=== PATIENT | female | born 1935 | race African-American/Black ===

== ENCOUNTER 2017-03-17 16:11 | Emergency (ER) | payer OTHER ==
--- NOTE | 2017-03-17 17:14 | CPEKG ---
Heart Rate: 53 RR Interval: 1132 P-R Interval: 160 QRSD Interval: 80 QT Interval: 444 QTC Interval: 417 P Delta: 8 QRS Delta: -14 T Wave Delta: 35 EKG Severity - NORMAL ECG - EKG Impression: SINUS RHYTHM Electronically Signed By: Tony Aguirre 17-Mar-2017 22:32:10
[2017-03-17] MEDS ORDERED: NS 1,000 ML IV ONE (17:20)
--- NOTE | 2017-03-17 17:20 | EDPHY ---
H & P Stated Complaint: Fall, not known why, small head lac HPI/ROS: HPI CHIEF COMPLAINT: Syncope, head injury, head laceration HISTORY OF PRESENT ILLNESS: This patient very pleasant 81-year-old female denies any significant medical history, does take daily aspirin, she presents emergency room after she had a syncopal episode. She states she was at the [facility] she was in a hot tub she stated the hot tub for approximately 25 minutes. She got overheated she decided to get out of the hot tub. She Got lightheaded, had a syncopal episode. No preceding symptoms. No chest pain or shortness of breath. She states the last thing she remember was trying to get into a shower. Found herself on the ground. She did have head strike. LOC. And has a small occipital hematoma and laceration. Past Medical History: Vertigo Past Surgical History: Denies recent surgery Social History: Denies daily use of drugs alcohol tobacco products Family History: Noncontributory ROS REVIEW OF SYSTEMS: A comprehensive 10 point review of systems is otherwise negative aside from elements mentioned in the history of present illness. Exam Constitutional triage nursing summary reviewed, vital signs reviewed, awake/ alert. Eyes normal conjunctivae and sclera, EOMI, PERRLA. HENT head/neck: Posterior occiput shows a small hematoma, with a small puncture laceration, otherwise atraumatic, no neck pain. normal inspection, atraumatic, moist mucus membranes, no epistaxis, neck supple/ no meningismus, no raccoon eyes. Respiratory clear to auscultation bilaterally, normal breath sounds, no respiratory distress, no wheezing. Cardiovascular rate normal, regular rhythm, no murmur, no edema, distal pulses normal. Gastrointestinal soft, non-tender, no rebound, no guarding, normal bowel sounds, no distension, no pulsatile mass. Genitourinary no CVA tenderness. Musculoskeletal no midline vertebral tenderness, full range of motion, no calf swelling, no tenderness of extremities, no meningismus, good pulses, neurovascularly intact. Skin pink, warm, & dry, no rash, skin atraumatic. Neurologic awake, alert and oriented x 3, AAOx3, moves all 4 extremities equally, motor intact, sensory intact, CN II-XII intact, normal cerebellar, normal vision, normal speech. Psychiatric normal mood/affect. Heme/Lymph/Immune no lymphadenopathy. 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 Re-evaluation: EKG interpretation by me on record in [facility] system. Impression time of EKG 17 12, sinus rhythm rate of 53. Normal intervals. No acute ischemic changes appreciated. Unremarkable EKG. CT scan of the head without IV contrast The results of the study are negative for acute intracranial trauma.. The study was read by Dr. Hernandez. I viewed the images myself on the PACS system. 1859: Re-evaluation at this time this patient is resting comfortably no acute distress. She ambulated well throughout the emergency room night difficulty. She did receive IV fluids. Blood work, EKG, troponin, CT scan is unremarkable. Her wound has been clean. Tetanus shot updated. She feels comfortable going home. She has been given return precautions she understands return to the emergency room if she has another syncopal episode. Stay well-hydrated drink lots of fluids. Source: Patient - Personal History Current Tetanus/Diphtheria Vaccine: Unsure Current Tetanus Diphtheria and Acellular Pertussis (TDAP): Unsure - Medical/Surgical History Hx Asthma: No Hx Chronic Respiratory Disease: No Hx Diabetes: No Hx Cardiac Disease: No Hx Renal Disease: No Hx Cirrhosis: No Hx Alcoholism: No Hx HIV/AIDS: No Hx Splenectomy or Spleen Trauma: No Other PMH: Elevated cholestrol, Breast CA (lumpectomy x 2 rt side), HTN - Social History Smoking Status: Never smoked Constitutional: Initial Vital Signs Temperature (C) 36.5 C 03/17/17 16:20 Heart Rate 67 03/17/17 16:20 Respiratory Rate 18 03/17/17 16:20 Blood Pressure 131/63 H 03/17/17 16:20 O2 Sat (%) 96 03/17/17 16:20 O2 Delivery Mode Room Air Allergies/Adverse Reactions: No Known Allergies Allergy (Verified 03/17/17 16:19) Home Medications: Medication Instructions Recorded Aspirin [Aspirin 81mg (*)] 81 mg PO DAILY 05/05/14 Cholecalciferol Vit D3 [Vitamin D3 1,000 units PO DAILY 05/05/14 (*)] Magnesium Oxide [Magnesium Oxide 400 mg PO DAILY 05/05/14 400 mg (*)] Ondansetron Odt [Zofran Odt 4 mg 4 mg PO Q4 #10 tab 05/05/14 (*)] Meclizine HCl 03/17/17 Medical Decision Making - Diagnostics Imaging Results: Imaging Impressions Chest X-Ray 03/17/17 17:20 Impression: 1. No acute pulmonary disease. 2. Atherosclerotic thoracic aorta. 3. Consider chest two views when the patient's medical condition permits. - Data Points Laboratory Results: Laboratory Results 03/17/17 17:25 03/17/17 17:25 03/17/17 03/17/17 03/17/17 17:25 17:25 17:25 WBC RBC Hgb Hct MCV MCH MCHC RDW Plt Count MPV Neut % (Auto) Lymph % (Auto) Callahan % (Auto) Eos % (Auto) Baso % (Auto) Nucleat RBC Rel Count Absolute Neuts (auto) Absolute Lymphs (auto) Absolute Monos (auto) Absolute Eos (auto) Absolute Basos (auto) Absolute Nucleated RBC Immature Gran % Immature Gran # PT 12.7 SEC SEC (12.0-15.0) INR 0.96 (0.83-1.16) APTT 24.8 SEC SEC (23.0-38.0) Sodium 140 mEq/L mEq/L (134-144) Potassium 3.8 mEq/L mEq/L (3.5-5.2) Chloride 105 mEq/L mEq/L (97-110) Carbon Dioxide 23 mEq/l mEq/l (22-31) Anion Gap 12 mEq/L mEq/L (8-16) BUN 15 mg/dL mg/dL (7-23) Creatinine 0.6 mg/dL mg/dL (0.6-1.0) Estimated GFR > 60 Glucose 83 mg/dL mg/dL (70-100) Calcium 9.6 mg/dL mg/dL (8.5-10.4) Magnesium 2.2 mg/dL mg/dL (1.6-2.3) Total Bilirubin 0.5 mg/dL mg/dL (0.1-1.4) Conjugated Bilirubin 0.3 mg/dL mg/dL (0.0-0.5) Unconjugated Bilirubin 0.2 mg/dL mg/dL (0.0-1.1) AST 26 IU/L IU/L (14-46) ALT 26 IU/L IU/L (9-52) Alkaline Phosphatase 74 IU/L IU/L (38-126) Troponin I < 0.012 ng/mL ng/mL (0-0.034) NT-Pro-B Natriuret Pep 139 pg/mL pg/mL (0-450) Total Protein 6.7 g/dL g/dL (6.3-8.2) Albumin 4.1 g/dL g/dL (3.5-5.0) Lipase 64.0 IU/L IU/L (23-300) Urine Color Pending Urine Appearance Pending Urine pH Pending Ur Specific Hamilton Pending Urine Protein Pending Urine Ketones Pending Urine Blood Pending Urine Nitrate Pending Urine Bilirubin Pending Urine Urobilinogen Pending Ur Leukocyte Esterase Pending Urine Glucose Pending 03/17/17 17:25 WBC 6.33 10^3/uL 10^3/uL (3.80-9.50) RBC 4.55 10^6/uL 10^6/uL (4.18-5.33) Hgb 13.2 g/dL g/dL (12.6-16.3) Hct 39.4 % % (38.0-47.0) MCV 86.6 fL fL (81.5-99.8) MCH 29.0 pg pg (27.9-34.1) MCHC 33.5 g/dL g/dL (32.4-36.7) RDW 11.9 % % (11.5-15.2) Plt Count 172 10^3/uL 10^3/uL (150-400) MPV 10.8 fL fL (8.7-11.7) Neut % (Auto) 70.3 % % (39.3-74.2) Lymph % (Auto) 18.5 % % (15.0-45.0) Callahan % (Auto) 8.7 % % (4.5-13.0) Eos % (Auto) 1.6 % % (0.6-7.6) Baso % (Auto) 0.6 % % (0.3-1.7) Nucleat RBC Rel Count 0.0 % % (0.0-0.2) Absolute Neuts (auto) 4.45 10^3/uL 10^3/uL (1.70-6.50) Absolute Lymphs (auto) 1.17 10^3/uL 10^3/uL (1.00-3.00) Absolute Monos (auto) 0.55 10^3/uL 10^3/uL (0.30-0.80) Absolute Eos (auto) 0.10 10^3/uL 10^3/uL (0.03-0.40) Absolute Basos (auto) 0.04 10^3/uL 10^3/uL (0.02-0.10) Absolute Nucleated RBC 0.00 10^3/uL 10^3/uL (0-0.01) Immature Gran % 0.3 % % (0.0-1.1) Immature Gran # 0.02 10^3/uL 10^3/uL (0.00-0.10) PT INR APTT Sodium Potassium Chloride Carbon Dioxide Anion Gap BUN Creatinine Estimated GFR Glucose Calcium Magnesium Total Bilirubin Conjugated Bilirubin Unconjugated Bilirubin AST ALT Alkaline Phosphatase Troponin I NT-Pro-B Natriuret Pep Total Protein Albumin Lipase Urine Color Urine Appearance Urine pH Ur Specific Hamilton Urine Protein Urine Ketones Urine Blood Urine Nitrate Urine Bilirubin Urine Urobilinogen Ur Leukocyte Esterase Urine Glucose Medications Given: Discontinued Medications Diphtheria/Tetanus/Acell Pertussis (Boostrix) 0.5 ml IM .ONCE ONE Stop: 03/17/17 17:53 Last Admin: 03/17/17 18:08 Dose: 0.5 ml Sodium Chloride (Ns) 1,000 mls @ 0 mls/hr IV ONCE ONE; Wide Open PRN Reason: Protocol Stop: 03/17/17 17:21 Last Admin: 03/17/17 17:30 Dose: 1,000 mls Departure - Departure Disposition: Home, Routine, Self-Care Clinical Impression: Syncope Qualifiers: Syncope type: vasovagal syncope Qualified Code(s): R55 - Syncope and collapse Condition: Good Instructions: Syncope (ED) Additional Instructions: 1. Drink lots of fluids stay well-hydrated. 2. Return to the emergency room if there is any worsening symptoms questions or concerns. Referrals: Yomi Moore MD [Primary Care Provider] - As per Instructions
[2017-03-17 17:38] LABS: % IMMATURE GRANULYOCYTES 0.3 % (0.0-1.1); ABSOLUTE IMMATURE GRANULOCYTES 0.02 10^3/uL (0.00-0.10); ADD DIFF? NO; ADD MORPH? NO; ADD SCAN? NO; ATYPICAL LYMPHOCYTE FLAG 0 (0-99); FRAGMENT RBC FLAG 0 (0-99); HEMATOCRIT 39.4 % (38.0-47.0); HEMOGLOBIN 13.2 g/dL (12.6-16.3); LEFT SHIFT FLG 0 (0-99); LIPEMIA HEMOLYSIS FLAG 80 (0-99); MEAN CELL HEMOGLOBIN CONCENTR. 33.5 g/dL (32.4-36.7); MEAN CELL VOLUME 86.6 fL (81.5-99.8); MEAN PLATELET VOLUME 10.8 fL (8.7-11.7); PLATELET CLUMPS FLAG 0 (0-99); PLATELET COUNT 172 10^3/uL (150-400); RED BLOOD CELL COUNT 4.55 10^6/uL (4.18-5.33); RED CELL DISTRIBUTION WIDTH 11.9 % (11.5-15.2)
[2017-03-17 17:47] LABS: APTT 24.8 SEC (23.0-38.0); INR 0.96 (0.83-1.16); PROTIME(PATIENT) 12.7 SEC (12.0-15.0)
[2017-03-17 17:52] LABS: ALANINE AMINOTRANSFERASE 26 IU/L (9-52); ALBUMIN 4.1 g/dL (3.5-5.0); ALKALINE PHOSPHATASE 74 IU/L (38-126); ANION GAP 12 mEq/L (8-16); ASPARTATE AMINOTRANSFERASE 26 IU/L (14-46); BILIRUBIN,TOTAL 0.5 mg/dL (0.1-1.4); BILIRUBIN-CONJUGATED 0.3 mg/dL (0.0-0.5); BILIRUBIN-UNCONJUGATED 0.2 mg/dL (0.0-1.1); CALCIUM 9.6 mg/dL (8.5-10.4); CARBON DIOXIDE 23 mEq/l (22-31); CHLORIDE 105 mEq/L (97-110); CREATININE 0.6 mg/dL (0.6-1.0); GLOMERULAR FILTRATION RATE > 60; GLUCOSE 83 mg/dL (70-100); MAGNESIUM 2.2 mg/dL (1.6-2.3); POTASSIUM 3.8 mEq/L (3.5-5.2); SODIUM 140 mEq/L (134-144); TOTAL PROTEIN 6.7 g/dL (6.3-8.2)
[2017-03-17] MEDS ORDERED: TDAP ADULT 0.5 ML INJ (BOOSTRIX) IM ONE (17:52)
[2017-03-17 18:04] LABS: TROPONIN I < 0.012 ng/mL (0-0.034)
[2017-03-17 19:17] VITALS: BP 149/87; PULSE 78; RESP 20; TEMP 98.1; O2SAT 97
== END 2017-03-17 19:16 | disposition home or self-care (01) ==
DX: R55 Syncope and collapse (principal); E86.9 Volume depletion, unspecified; I10 Essential (primary) hypertension; Z85.3 Personal history of malignant neoplasm of breast; Z23 Encounter for immunization; Z79.82 Long term (current) use of aspirin; W18.00XA Striking against unspecified object with subsequent fall, initial encounter

== ENCOUNTER → 2017-03-25 | Outpatient (CLI) | payer OTHER | LOC: FIMAGING 10:37 | PROVIDERS: ATTEND Family Medicine Sports Medicine | DX: Z12.31 Encounter for screening mammogram for malignant neoplasm of breast (principal); Z85.3 Personal history of malignant neoplasm of breast | CPT/HCPCS: G0202 ==